=== PATIENT | male | born 1975 | race Two or more races ===

== ENCOUNTER 2018-01-25 12:10 | Emergency (ER) | payer MEDICAID, MEDICARE ==
[~2018-01-25] VITALS: Ht 167.6 cm; Wt 65.8 kg
[2018-01-25 12:14] VITALS: BP 115/78
--- NOTE | 2018-01-25 12:57 | Emergency Room Report ---
History of Present Illness General Chief Complaint: General Complaint Source: Patient, EMS (GIANLUCA CURIEL) Present Illness HPI The patient is a 42-year-old male accompanied by police officers for complaint of suicidal ideation. Patient has a stated history of schizophrenia. He denies any other medical problems. He states that he has not been taking his medication because he believes it is harming him. He states that he wants to kill himself by jumping off of a tall building. He admits to hearing voices that are telling him to kill himself. He denies any other symptoms at this time including nausea, vomiting, fever, chills, shortness of breath The patient was placed on a 72 hour hold by police (GIANLUCA CURIEL) Allergies: Coded Allergies: No Known Allergies (Unverified , 01/25/18) Patient History Past Medical History: see triage record, psych hx Pertinent Family History: none Reviewed Nursing Documentation: PMH: Agreed, PSxH: Agreed (GIANLUCA CURIEL) Nursing Documentation-PMH History Of Psychiatric Problem: Yes - depression , anxiety, shizo (GIANLUCA CURIEL.Matty) Review of Systems All Other Systems: negative except mentioned in HPI (GIANLUCA CURIEL P.Matty) Physical Exam Vital Signs Date Time Temp Pulse Resp B/P (MAP) Pulse Ox O2 Delivery O2 Flow Rate FiO2 01/25/18 12:04 97.4 90 16 115/78 98 Room Air 97.3 Sp02 EP Interpretation: reviewed, normal General Appearance: no apparent distress, alert, GCS 15, non-toxic Head: normocephalic, atraumatic Eyes: bilateral eye normal inspection, bilateral eye PERRL ENT: hearing grossly normal, normal pharynx, no angioedema, normal voice Neck: full range of motion, supple/symm/no masses Respiratory: chest non-tender, lungs clear, normal breath sounds, no wheezing, speaking full sentences Cardiovascular #1: regular rate, rhythm, no edema Musculoskeletal: back normal, gait/station normal, normal range of motion, non- tender Neurologic: alert, responsive, sensory intact Psychiatric: other - mildly anxious Suicide Risk Assessment: Suicidal Ideation: Yes Pt's plan for suicide attempt: Yes Skin: normal color, no rash, warm/dry, well hydrated (GIANLUCA CURIEL) Medical Decision Making PA Attestation Dr. Kern is my supervising physician. Patient management was discussed with my supervising physician (GIANLUCA CURIEL) Diagnostic Impression: Primary Impression: Psychosis Qualified Codes: F29 - Unspecified psychosis not due to a substance or known physiological condition Additional Impression: Suicidal ideation ER Course The patient is a 42-year-old male accompanied by police officers for complaint of suicidal ideation. He is on 5150 per police. Differential diagnoses considered but not limited to suicidal ideation, homicidal ideation, depression, psychosis, drug use, among others PE: vitals WNL. NAD Patient is mildly anxious. He is alert and oriented Follows directions without any difficulty and is cooperative RRR Lungs are clear to auscultation bilaterally Labs are unremarkable except for tox positive for THC He is given one dose of Zyprexa and has been resting comfortably. He'll be transferred to [facility] psych[facility] facility for further treatment and eval. Laboratory Tests Test 01/25/18 13:00 White Blood Count 6.7 K/UL (4.8-10.8) Red Blood Count 4.68 M/UL (4.70-6.10) L Hemoglobin 14.0 G/DL (14.2-18.0) L Hematocrit 41.4 % (42.0-52.0) L Mean Corpuscular Volume 88 FL (80-99) Mean Corpuscular Hemoglobin 29.8 PG (27.0-31.0) Mean Corpuscular Hemoglobin Concent 33.8 G/DL (32.0-36.0) Red Cell Distribution Width 11.6 % (11.6-14.8) Platelet Count 238 K/UL (150-450) Mean Platelet Volume 7.0 FL (6.5-10.1) Neutrophils (%) (Auto) 65.7 % (45.0-75.0) Lymphocytes (%) (Auto) 25.1 % (20.0-45.0) Monocytes (%) (Auto) 8.3 % (1.0-10.0) Eosinophils (%) (Auto) 0.1 % (0.0-3.0) Basophils (%) (Auto) 0.9 % (0.0-2.0) Sodium Level 142 MMOL/L (136-145) Potassium Level 3.6 MMOL/L (3.5-5.1) Chloride Level 108 MMOL/L (98-107) H Carbon Dioxide Level 28 MMOL/L (21-32) Anion Gap 6 mmol/L (5-15) Blood Urea Nitrogen 17 mg/dL (7-18) Creatinine 0.9 MG/DL (0.55-1.30) Estimate Glomerular Filtration Rate > 60 mL/min (>60) Glucose Level 107 MG/DL (74-106) H Calcium Level 9.3 MG/DL (8.5-10.1) Total Bilirubin 0.3 MG/DL (0.2-1.0) Aspartate Amino Transferase (AST) 19 U/L (15-37) Alanine Aminotransferase (ALT) 21 U/L (12-78) Alkaline Phosphatase 93 U/L (46-116) Total Protein 6.9 G/DL (6.4-8.2) Albumin 3.5 G/DL (3.4-5.0) Globulin 3.4 g/dL Albumin/Globulin Ratio 1.0 (1.0-2.7) Salicylates Level < 0.2 ug/mL (2.8-20) L Urine Opiates Screen Negative (NEGATIVE) Acetaminophen Level < 2 MCG/ML (10-30) L Urine Barbiturates Screen Negative (NEGATIVE) Phencyclidine (PCP) Screen Negative (NEGATIVE) Urine Amphetamines Screen Negative (NEGATIVE) Urine Benzodiazepines Screen Negative (NEGATIVE) Urine Cocaine Screen Negative (NEGATIVE) Urine Marijuana (THC) Screen Positive (NEGATIVE) H Serum Alcohol < 3 mg/dL Lab Results Impression Labs are unremarkable except for tox positive for THC (GIANLUCA CURIEL P.A.) ER Course Agree with above assessment. Patient examined by me. States has taken many antipsychotic meds. Last was abilify with paxil. Does not like these. Also has taken others. Not like Depakote. Agrees to take Zyprexa. Ordered. Wants to get help with social situation. Patient is medically cleared. Accepted and transfer to [facility]. (Rashad Kern M.D.) Last Vital Signs Date Time Temp Pulse Resp B/P (MAP) Pulse Ox O2 Delivery O2 Flow Rate FiO2 01/25/18 12:04 97.4 90 16 115/78 98 Room Air 97.3 Status: improved (GIANLUCA CURIEL) Last Vital Signs Date Time Temp Pulse Resp B/P (MAP) Pulse Ox O2 Delivery O2 Flow Rate FiO2 01/25/18 21:07 97.6 90 20 106/66 98 Room Air 97.6 Status: improved (Rashad Kern M.D.) Disposition: XFER TO PSYCH HOSP/UNIT Condition: Serious GIANLUCA CURIEL Jan 25, 2018 12:57 Rashad Kern M.D. Jan 25, 2018 15:08
[2018-01-25 13:17] LABS: BASOPHILS % (AUTO) 0.9 % (0.0-2.0); EOSINOPHILS % (AUTO) 0.1 % (0.0-3.0); HEMATOCRIT 41.4 % (42.0-52.0); LYMPHOCYTES % (AUTO) 25.1 % (20.0-45.0); MEAN CORPUSCULAR VOLUME 88 FL (80-99); MONOCYTES % (AUTO) 8.3 % (1.0-10.0); NEUTROPHILS % (AUTO) 65.7 % (45.0-75.0); PLATELET COUNT 238 K/UL (150-450); RED BLOOD COUNT 4.68 M/UL (4.70-6.10); RED CELL DISTRIBUTION WIDTH 11.6 % (11.6-14.8); WHITE BLOOD COUNT 6.7 K/UL (4.8-10.8)
[2018-01-25 13:29] LABS: ANION GAP 6 mmol/L (5-15); BLOOD UREA NITROGEN 17 mg/dL (7-18); CALCIUM 9.3 MG/DL (8.5-10.1); CARBON DIOXIDE 28 MMOL/L (21-32); CHLORIDE 108 MMOL/L (98-107); CREATININE 0.9 MG/DL (0.55-1.30); POTASSIUM 3.6 MMOL/L (3.5-5.1); SODIUM 142 MMOL/L (136-145)
[2018-01-25 13:36] LABS: ALANINE AMINOTRANSFERASE 21 U/L (12-78); ALBUMIN 3.5 G/DL (3.4-5.0); ALKALINE PHOSPHATASE 93 U/L (46-116); ASPARTATE AMINO TRANSFERASE 19 U/L (15-37); BILIRUBIN,TOTAL 0.3 MG/DL (0.2-1.0)
[2018-01-25 14:29] VITALS: BP 127/80
[2018-01-25 16:10] VITALS: BP 110/72
[2018-01-25 18:35] VITALS: BP 99/62
[2018-01-25 21:07] VITALS: BP 106/66
== END 2018-01-25 21:20 ==
LOC: EDBD 12:10 → EMR 13:00
DX: F29 Unspecified psychosis not due to a substance or known physiological condition (principal); R45.851 Suicidal ideations; F32.9 Major depressive disorder, single episode, unspecified; F41.9 Anxiety disorder, unspecified; F20.9 Schizophrenia, unspecified
CPT/HCPCS: 36415; 80053; 80307; 80329; 85025; 99285